=== PATIENT | female | born 1990 | race Caucasian/White ===

== ENCOUNTER → 2023-10-31 14:01 | Outpatient (REF) | payer OTHER, SELFPAY | LOC: RAD 14:01 | PROVIDERS: ATTENDING PHYSICIAN Nurse Practitioner Family; FAMILY PHYSICIAN Family Medicine | DX: R10.2 Pelvic and perineal pain (principal) | CPT/HCPCS: 76801; 76817 ==

== ENCOUNTER → 2023-11-20 08:27 | Outpatient (REF) | payer OTHER, SELFPAY | LOC: RAD 08:27 | PROVIDERS: ATTENDING PHYSICIAN Nurse Practitioner Family | DX: Z34.90 Encounter for supervision of normal pregnancy, unspecified, unspecified trimester (principal) | CPT/HCPCS: 76801 ==

== ENCOUNTER → 2023-12-28 11:04 | Outpatient (REF) | payer OTHER, SELFPAY | LOC: PNTC 11:04 | PROVIDERS: ATTENDING PHYSICIAN Obstetrics & Gynecology | DX: O99.320 Drug use complicating pregnancy, unspecified trimester (principal); G90.50 Complex regional pain syndrome I, unspecified | CPT/HCPCS: 76805 ==

== ENCOUNTER → 2024-01-25 07:22 | Outpatient (REF) | payer OTHER, SELFPAY | LOC: PNTC 07:22 | PROVIDERS: ATTENDING PHYSICIAN Obstetrics & Gynecology | DX: O99.320 Drug use complicating pregnancy, unspecified trimester (principal) | CPT/HCPCS: 76811 ==

== ENCOUNTER → 2024-02-22 07:59 | Outpatient (REF) | payer OTHER, SELFPAY | LOC: PNTC 07:59 | PROVIDERS: ATTENDING PHYSICIAN Obstetrics & Gynecology | DX: O44.42 Low lying placenta NOS or without hemorrhage, second trimester (principal) | CPT/HCPCS: 76816; 76817 ==

== ENCOUNTER → 2024-03-04 11:32 | Outpatient (REF) | payer OTHER, SELFPAY | LOC: PNTC 11:32 | PROVIDERS: ATTENDING PHYSICIAN Student in an Organized Health Care Education/Training Program | DX: O36.8190 Decreased fetal movements, unspecified trimester, not applicable or unspecified (principal) | CPT/HCPCS: 59025; 76815 ==

== ENCOUNTER → 2024-03-19 09:10 | Outpatient (REF) | payer OTHER, SELFPAY | LOC: PNTC 09:10 | PROVIDERS: ATTENDING PHYSICIAN Obstetrics & Gynecology | DX: Z34.02 Encounter for supervision of normal first pregnancy, second trimester (principal) | CPT/HCPCS: 36415; 86850; 86900; 86901; 96372; J2790 ==

== ENCOUNTER → 2024-04-15 09:33 | Outpatient (REF) | payer OTHER, SELFPAY | LOC: PNTC 09:33 | PROVIDERS: ATTENDING PHYSICIAN Student in an Organized Health Care Education/Training Program | DX: O99.320 Drug use complicating pregnancy, unspecified trimester (principal) | CPT/HCPCS: 76816 ==

== ENCOUNTER 2024-06-15 05:35 | Inpatient (IN) | payer OTHER, SELFPAY ==
[2024-06-15 06:21] VITALS: BP 104/49; BMI 25.9
[2024-06-15 06:38] LABS: % Basophils 0.3 % (0-2); % Eosinophils 0.6 % (0-6); % Immature Granulocytes 0.7 % (0-0.5); % Lymphocytes 13.2 % (20.5-51.1); % Monocytes 8.1 % (1.7-9.3); % Neutrophils 77.1 % (42.2-75.2); Absolute Eosinophils 0.1 10^3/uL (0-0.7); Absolute Immature Granulocytes 0.1 10^3/uL (0-0.05); Absolute Lymphocytes 1.5 10^3/uL (1.2-3.4); Absolute Monocytes 0.9 10^3/uL (0.1-0.6); Absolute Neutrophils 8.8 10^3/uL (1.4-6.5); Mean Corp Hgb Conc. 33.3 g/dL (33.0-37.0); Mean Corpuscular Hgb 29.3 pg (27.0-31.0); Mean Corpuscular Volume 87.8 fL (81.0-99.0); Mean Platelet Volume 12.4 fL (7.4-10.4); Nucleated Red Blood Cells % 0 %; Platelet Count 172 10^3/uL (130-400); Red Cell Dist. Width 12.9 % (11.5-14.5); White Blood Cell Count 11.4 10^3/uL (4.8-10.8)
[2024-06-15] MEDS: LR 1000 IV ×2 (07:38→09:30)
[2024-06-15] MEDS: NON-FORMULARY ITEM 1 UNIT PO (08:30)
[2024-06-15] MEDS: SUBLIMAZE 100 MCG EPIDURAL (08:56)
[2024-06-15] MEDS: FENTANYL/BUPIVACAINE 100 EPIDURAL ×2 (08:56→17:32)
[2024-06-16] MEDS: LR 1000 IV (00:20)
[2024-06-16] MEDS: PITOCIN 30 UNITS/NSS 500 ML IV (00:36)
[2024-06-16] MEDS: XYLOCAINE-MPF 1% VIAL 30 ML INFIL (00:46)
[2024-06-16] MEDS: TYLENOL 650 MG PO ×2 (04:54→12:25)
[2024-06-16] MEDS: MOTRIN 600 MG PO ×3 (04:54→23:42)
[2024-06-16] MEDS: SENOKOT-S 1 TABLET PO (08:31)
[2024-06-16] MEDS: PRENATAL PLUS 1 TABLET PO (08:31)
[2024-06-16] MEDS: CELEXA 10 MG PO (08:31)
[2024-06-17 06:10] LABS: Hematocrit 31.7 % (37.0-47.0); Hemoglobin 10.2 g/dL (12.0-16.0)
[2024-06-17] MEDS: MOTRIN 600 MG PO ×2 (08:03→14:24)
[2024-06-17] MEDS: PRENATAL PLUS 1 TABLET PO (08:03)
[2024-06-17] MEDS: CELEXA 10 MG PO (08:03)
[2024-06-17] MEDS: TYLENOL 650 MG PO ×2 (08:04→14:25)
[2024-06-17] MEDS: RHOGAM 300 MCG IM (13:00)
[2024-06-18] MEDS: MOTRIN 600 MG PO (05:36)
[2024-06-18] MEDS: TYLENOL 650 MG PO (05:36)
[2024-06-18] MEDS: PRENATAL PLUS 1 TABLET PO (08:02)
[2024-06-18] MEDS: CELEXA 10 MG PO (08:02)
[2024-06-18 12:21] LABS: Syphilis/T. pallidum Ab Reflex Negative (Negative)
== END 2024-06-18 13:59 | disposition home or self-care (01) | DRG 807 ==
LOC: LDRP 05:35
PROVIDERS: Obstetrics & Gynecology; ADMITTING PHYSICIAN Obstetrics & Gynecology
PROC: 10E0XZZ Delivery of Products of Conception, External Approach (ICD-10-PCS; 2024-06-15)
PROC: 0UQMXZZ Repair Vulva, External Approach (ICD-10-PCS; 2024-06-15)
PROC: 4A1HXCZ Monitoring of Products of Conception, Cardiac Rate, External Approach (ICD-10-PCS; 2024-06-15)
PROC: 3E0234Z Introduction of Serum, Toxoid and Vaccine into Muscle, Percutaneous Approach (ICD-10-PCS; 2024-06-17)
DX: O48.0 Post-term pregnancy (principal); Z37.0 Single live birth; O32.6XX0 Maternal care for compound presentation, not applicable or unspecified; Z3A.40 40 weeks gestation of pregnancy; O70.0 First degree perineal laceration during delivery; O26.893 Other specified pregnancy related conditions, third trimester; Z67.41 Type O blood, Rh negative
CPT/HCPCS: 85014; 85018; 85025; 85461; 86780; 86850; 86900; 86901; J2790